=== PATIENT | male | born 1945 | race Caucasian/White ===

== ENCOUNTER → 2020-09-21 | Outpatient (CLI) | payer MEDICARE, BC ==
[~2020-09-21] MED LIST: ALEVE220 M1 PO; ATORVASTATIN CA10 MG PO; CLOPIDOGREL75 MG PO; METOPROLOL SUCC25 MG PO; NEXIUM40 MG PO; NORCO 7.5-3251 EACH PO
[2020-09-21 09:49] LABS: BASOPHILS % 0.5 % (0.0-1.0); EOSINOPHILS # (AUTO) 0.4 (0.0-0.4); EOSINOPHILS % 6.1 % (0.0-6.0); HEMATOCRIT 43.5 % (38.2-49.6); HEMOGLOBIN 15.1 g/dL (14.0-18.0); LYMPHOCYTES # (AUTO) 1.6 (1.0-3.2); LYMPHOCYTES % 27.1 % (18.0-39.1); MEAN CORPUSCULAR HEMOGLOBIN 30.3 pg (28-32); MEAN CORPUSCULAR HGB CONC 34.7 g/dL (31-35); MEAN CORPUSCULAR VOLUME 87.3 fL (81-99); MONOCYTES # (AUTO) 0.6 (0.2-0.8); MONOCYTES % 10.2 % (4.4-11.3); NEUTROPHILS # (AUTO) 3.2 (2.1-6.9); NEUTROPHILS % 55.8 % (38.7-80.0); PLATELET COUNT 220 x10e3/uL (140-360); RED BLOOD COUNT 4.98 x10e6/uL (4.3-5.7); RED CELL DISTRIBUTION WIDTH 12.5 % (11.7-14.4)
[2020-09-21 10:11] LABS: ALANINE AMINOTRANSFERASE 21 IU/L (0-55); ALBUMIN 3.7 g/dL (3.5-5.0); ALBUMIN/GLOBULIN RATIO 1.1 (0.8-2.0); ALKALINE PHOSPHATASE 58 IU/L (40-150); ANION GAP 15.1 mmol/L (8-16); BLOOD UREA NITROGEN 15 mg/dL (7-26); BUN/CREATININE RATIO 14 (6-25); CALCIUM 8.7 mg/dL (8.4-10.2); CARBON DIOXIDE 23 mmol/L (22-29); CHLORIDE 103 mmol/L (98-107); CHOL/HDL RATIO 3.3 (3.9-4.7); CHOLESTEROL 131 MD/DL (0-199); EST GLOMERULAR FILTRATION RATE > 60 ML/MIN (60-); GLUCOSE 98 mg/dL (74-118); HDL CHOLESTEROL 40 MG/DL (40-60); LDL CHOLESTEROL 58 MG/DL (60-130); POTASSIUM 4.1 mmol/L (3.5-5.1); SODIUM 137 mmol/L (136-145); TRIGLYCERIDES 164 MG/DL (0-149)
== END ==
LOC: RAD 09:12
PROVIDERS: ATTEND Family Medicine
DX: Z01.818 Encounter for other preprocedural examination (principal); E78.5 Hyperlipidemia, unspecified; I10 Essential (primary) hypertension
CPT/HCPCS: 36415; 71046; 80053; 80061; 85025

== ENCOUNTER 2020-11-12 08:00 | Observation (INO) | payer MEDICARE, BC ==
[2020-11-08 09:20] LABS: BASOPHILS % 0.6 % (0.0-1.0); EOSINOPHILS # (AUTO) 0.3 (0.0-0.4); EOSINOPHILS % 5.5 % (0.0-6.0); HEMATOCRIT 42.6 % (38.2-49.6); HEMOGLOBIN 14.1 g/dL (14.0-18.0); LYMPHOCYTES # (AUTO) 1.5 (1.0-3.2); LYMPHOCYTES % 29.8 % (18.0-39.1); MEAN CORPUSCULAR HEMOGLOBIN 29.4 pg (28-32); MEAN CORPUSCULAR HGB CONC 33.1 g/dL (31-35); MEAN CORPUSCULAR VOLUME 88.8 fL (81-99); MONOCYTES # (AUTO) 0.5 (0.2-0.8); MONOCYTES % 10.7 % (4.4-11.3); NEUTROPHILS # (AUTO) 2.6 (2.1-6.9); PLATELET COUNT 204 x10e3/uL (140-360); RED CELL DISTRIBUTION WIDTH 12.7 % (11.7-14.4)
[~2020-11-12] VITALS: Ht 170.2 cm; Wt 102.1 kg
[2020-11-12] VITALS (8 sets, daily range): BP systolic 125–155; BP diastolic 60–90
[~2020-11-12 08:00] MED LIST changes: +CEFAZOLIN SOD 1 GM/NS 50ML 100 ML IV ONE; +CELECOXIB 200 MG CAP ONE; +DEXAMETHASONE SOD PHOS 10 MG/1 ML VIAL ONE; +GABAPENTIN 300 MG CAP ONE; +ROPIVACAINE 246.25 MG, EPINEPHRINE HCL 1:1000 1ML 0.5 MG, CLONIDINE HCL 0.08 MG, KETORO... INJ ONE; +SODIUM CHLORIDE 0.9% 500ML 500 ML ONE; +TRANEXAMIC ACID 1,000 MG/10 ML ML ONE; +VANCOMYCIN HCL 1,000 MG ONE
[2020-11-12] MEDS ORDERED: DOCUSATE SODIUM 100 MG CAP PO PRN (08:30)
[2020-11-12] MEDS ORDERED: DIPHENHYDRAMINE HCL INJ 50 MG/ML VIAL IV PRN (08:30)
[2020-11-12] MEDS ORDERED: HYDROCODONE/APAP 5MG-325MG TAB PO PRN (08:30)
[2020-11-12] MEDS ORDERED: ONDANSETRON HCL INJ 2MG/ML 2ML 2 MG/ML VIAL IV PRN (08:30)
[2020-11-12] MEDS ORDERED: KETOROLAC TROMETHAMINE 30 MG/ML VIAL IV PRN (08:30)
[2020-11-12] MEDS ORDERED: ACETAMINOPHEN 650 MG SUPP PR PRN (08:30)
[2020-11-12] MEDS ORDERED: ZOLPIDEM TARTRATE 5 MG TAB PO PRN (08:30)
[2020-11-12] MEDS ORDERED: MEPERIDINE HCL INJ 25 MG/ML VIAL ONE (08:51)
[2020-11-12] MEDS ORDERED: FENTANYL CITRATE/PF 100MCG/2 ML INJ ONE ×2 (09:02→13:01)
[2020-11-12] MEDS: SODIUM CHLORIDE 0.9% 1000ML 1,000 ML IV SCH ×2 (10:30→19:31)
[2020-11-12] MEDS: ASPIRIN 325 MG TAB PO SCH ×2 (11:09→16:27)
[2020-11-12] MEDS: CELECOXIB 200 MG CAP PO SCH ×2 (11:09→16:27)
[2020-11-12] MEDS ORDERED: DEXAMETHASONE SOD PHOS INJ 4 MG/ML VIAL ONE (12:32)
[2020-11-12] MEDS ORDERED: GLYCOPYRROLATE INJ 0.2 MG/ML VIAL ONE (12:32)
[2020-11-12] MEDS ORDERED: LIDOCAINE HCL 2% LOCAL INJ 5 ML SDV VIAL INJ ONE (12:32)
[2020-11-12] MEDS ORDERED: ONDANSETRON HCL INJ 2MG/ML 2ML 2 MG/ML VIAL ONE (12:32)
[2020-11-12] MEDS ORDERED: SEVOFLURANE INHAL SOLN 250 ML PEN BTL ONE (12:32)
[2020-11-12] MEDS ORDERED: PROPOFOL IV EMULSION 10 MG/ML 20 ML VIAL ONE (12:32)
[2020-11-12] MEDS ORDERED: BUPIVACAINE HCL 0.5% INJ 30 ML VIAL INJ ONE (12:55)
[2020-11-12] MEDS ORDERED: MIDAZOLAM HCL 2 MG/2 ML VIAL ONE (13:01)
[2020-11-12] MEDS ORDERED: MORPHINE SULFATE INJ 10 MG/ML ONE (13:01)
[2020-11-12] MEDS: CEFAZOLIN SOD 1 GM/NS 50ML 50 ML IV SCH ×2 (16:27→23:00)
[2020-11-12] MEDS: HYDROCODONE/APAP 7.5MG-325MG 1 EA TAB PO PRN (19:32)
[2020-11-13] VITALS: BP 132/72
[2020-11-13 04:00] VITALS: BP 119/76
[2020-11-13 04:51] LABS: HEMATOCRIT 37.5 % (38.2-49.6); HEMOGLOBIN 12.7 g/dL (14.0-18.0)
[2020-11-13] MEDS: SODIUM CHLORIDE 0.9% 1000ML 1,000 ML IV SCH (06:30)
[2020-11-13] MEDS: CEFAZOLIN SOD 1 GM/NS 50ML 50 ML IV SCH (06:54)
[2020-11-13] MEDS: ASPIRIN 325 MG TAB PO SCH (07:35)
[2020-11-13] MEDS: CELECOXIB 200 MG CAP PO SCH (07:35)
[2020-11-13 07:44] VITALS: BP 127/75
[2020-11-13 07:50] VITALS: BP 127/75
[2020-11-13] MEDS ORDERED: ACETAMINOPHEN 1000 MG/100 ML IV PRN (08:30)
[2020-11-13] MEDS ORDERED: PANTOPRAZOLE SOD 40 MG TABEC PO SCH (09:00)
[2020-11-13] MEDS ORDERED: CLOPIDOGREL BISULFATE 75 MG TAB PO SCH (09:00)
[2020-11-13] MEDS ORDERED: ATORVASTATIN 10 MG TAB PO SCH (09:00)
[2020-11-13] MEDS: HYDROCODONE/APAP 7.5MG-325MG 1 EA TAB PO PRN (09:01)
[2020-11-13 11:49] VITALS: BP 166/80
[2020-11-13] MEDS ORDERED: METOPROLOL SUCCINATE 25 MG TAB XL PO SCH (21:00)
== END 2020-11-13 12:01 | disposition home or self-care (01) ==
LOC: OR 08:00 → PACU V 08:29 → MED/SURG 09:26
PROVIDERS: ADMIT Specialist; ATTEND Specialist
DX: M17.11 Unilateral primary osteoarthritis, right knee (principal); K21.9 Gastro-esophageal reflux disease without esophagitis; E78.5 Hyperlipidemia, unspecified; I10 Essential (primary) hypertension; Z01.812 Encounter for preprocedural laboratory examination; Z20.822 Contact with and (suspected) exposure to COVID-19; I25.2 Old myocardial infarction; Z96.652 Presence of left artificial knee joint
CPT/HCPCS: 27447; 36415 ×2; 73560; 85014; 85018; 85025; 86850; 86900; 86920; 93005; 97110; 97116 ×2; 97161; 97530 ×2; C1713 ×3; C1776 ×2; G0378 ×2; J0171; J0690 ×2; J1100 ×2; J1885; J2001; J2175; J2250; J2270; J2405; J2704; J2795; J3010; J3370; J7030; J7040; S0164; U0002

== ENCOUNTER 2021-03-04 07:00 | Outpatient (RCR) | payer MEDICARE, BC ==
[~2021-03-04 07:00] MED LIST changes: -CEFAZOLIN SOD 1 GM/NS 50ML 100 ML IV ONE; -CELECOXIB 200 MG CAP ONE; -DEXAMETHASONE SOD PHOS 10 MG/1 ML VIAL ONE; -GABAPENTIN 300 MG CAP ONE; -ROPIVACAINE 246.25 MG, EPINEPHRINE HCL 1:1000 1ML 0.5 MG, CLONIDINE HCL 0.08 MG, KETORO... INJ ONE; -SODIUM CHLORIDE 0.9% 500ML 500 ML ONE; -TRANEXAMIC ACID 1,000 MG/10 ML ML ONE; -VANCOMYCIN HCL 1,000 MG ONE
== END 2021-03-16 ==
LOC: PT 07:00
PROVIDERS: ATTEND Physician Assistant
DX: Z47.1 Aftercare following joint replacement surgery (principal); Z96.651 Presence of right artificial knee joint

== ENCOUNTER 2021-09-12 13:30 | Outpatient (RCR) | payer MEDICARE, BC | END 2021-09-16 | LOC: PT 13:30 | PROVIDERS: ATTEND Specialist | DX: M77.8 Other enthesopathies, not elsewhere classified (principal); M25.511 Pain in right shoulder; M25.512 Pain in left shoulder; M62.81 Muscle weakness (generalized); R29.3 Abnormal posture ==

== ENCOUNTER 2021-10-03 07:59 | Outpatient (RCR) | payer MEDICARE, BC | END 2021-10-14 | LOC: PT 07:59 | PROVIDERS: ATTEND Specialist | DX: M77.8 Other enthesopathies, not elsewhere classified (principal); M75.82 Other shoulder lesions, left shoulder; M75.81 Other shoulder lesions, right shoulder ==

== ENCOUNTER → 2022-09-05 | Outpatient (CLI) | payer MEDICARE, BC | LOC: MRI 07:38 | PROVIDERS: ATTEND Physician Assistant | DX: M75.31 Calcific tendinitis of right shoulder (principal); M25.511 Pain in right shoulder ==

== ENCOUNTER → 2022-10-27 | Day surgery (SDC) | payer MEDICARE, BC ==
[2022-10-24 10:47] LABS: BASOPHILS % 0.5 % (0.0-1.0); EOSINOPHILS # (AUTO) 0.3 (0.0-0.4); EOSINOPHILS % 5.8 % (0.0-6.0); HEMATOCRIT 40.5 % (38.2-49.6); HEMOGLOBIN 13.6 g/dL (14.0-18.0); LYMPHOCYTES # (AUTO) 1.7 (1.0-3.2); MEAN CORPUSCULAR HEMOGLOBIN 29.9 pg (28-32); MEAN CORPUSCULAR HGB CONC 33.6 g/dL (31-35); MONOCYTES # (AUTO) 0.7 (0.2-0.8); NEUTROPHILS # (AUTO) 2.9 (2.1-6.9); NEUTROPHILS % 51.3 % (38.7-80.0); PLATELET COUNT 234 x10e3/uL (140-360); RED BLOOD COUNT 4.55 x10e6/uL (4.3-5.7); RED CELL DISTRIBUTION WIDTH 12.5 % (11.7-14.4)
[~2022-10-27] MED LIST changes: +ACETAMINOPHEN 1000 MG/100 ML 100 ML IV ONE; +AMLODIPINE BESYL5 MG PO; +ASPIRIN EC81 MG PO; +DEXAMETHASONE SOD PHOS INJ 4 MG/ML SDV ONE; +EPHEDRINE SULFATE INJ 50 MG/ML VIAL ONE; +EPINEPHRINE 1 MG/ML 30ML VIAL ONE; +FENTANYL CITRATE/PF 100MCG/2 ML INJ ONE; +LIDOCAINE HCL 2% LOCAL INJ 5 ML SDV VIAL INJ ONE; +METOCLOPRAMIDE HCL 10 MG/2ML VIAL ONE; +MIDAZOLAM HCL 2 MG/2 ML VIAL ONE; +ONDANSETRON HCL INJ 2MG/ML 2ML 2 MG/ML VIAL ONE; +POVIDONE IODINE 0.05% 0.05 % ML PO ONE; +PROPOFOL IV EMULSION 10 MG/ML 20 ML VIAL ONE; +ROCURONIUM BROMIDE 10 MG/ML 5ML VIAL IV ONE; +ROPIVACAINE 0.5% 5 MG/ML 30 ML SDV ONE; +SEVOFLURANE INHAL SOLN 250 ML PEN BTL ONE; +SUGAMMADEX SODIUM 200 MG/2 ML VIAL IV ONE
[2022-10-27 14:35] VITALS: BP 127/73
== END | disposition home or self-care (01) ==
LOC: OR 06:55
PROVIDERS: ATTEND Specialist
DX: M75.122 Complete rotator cuff tear or rupture of left shoulder, not specified as traumatic (principal); S43.432A Superior glenoid labrum lesion of left shoulder, initial encounter; M75.22 Bicipital tendinitis, left shoulder; M75.111 Incomplete rotator cuff tear or rupture of right shoulder, not specified as traumatic; I25.2 Old myocardial infarction; K21.9 Gastro-esophageal reflux disease without esophagitis; X58.XXXA Exposure to other specified factors, initial encounter; Z01.812 Encounter for preprocedural laboratory examination; Z01.818 Encounter for other preprocedural examination; Z79.02 Long term (current) use of antithrombotics/antiplatelets; Z79.82 Long term (current) use of aspirin; Z79.899 Other long term (current) drug therapy; Z87.891 Personal history of nicotine dependence
CPT/HCPCS: 29827; 36415; 71046; 85025; C1713; J0131; J0690; J1100; J2001; J2250; J2405; J2704; J2765; J2795; J3010

== ENCOUNTER 2023-01-13 07:52 | Outpatient (RCR) | payer MEDICARE, BC ==
[~2023-01-13 07:52] MED LIST changes: -ACETAMINOPHEN 1000 MG/100 ML 100 ML IV ONE; -DEXAMETHASONE SOD PHOS INJ 4 MG/ML SDV ONE; -EPHEDRINE SULFATE INJ 50 MG/ML VIAL ONE; -EPINEPHRINE 1 MG/ML 30ML VIAL ONE; -FENTANYL CITRATE/PF 100MCG/2 ML INJ ONE; -LIDOCAINE HCL 2% LOCAL INJ 5 ML SDV VIAL INJ ONE; -METOCLOPRAMIDE HCL 10 MG/2ML VIAL ONE; -MIDAZOLAM HCL 2 MG/2 ML VIAL ONE; -ONDANSETRON HCL INJ 2MG/ML 2ML 2 MG/ML VIAL ONE; -POVIDONE IODINE 0.05% 0.05 % ML PO ONE; -PROPOFOL IV EMULSION 10 MG/ML 20 ML VIAL ONE; -ROCURONIUM BROMIDE 10 MG/ML 5ML VIAL IV ONE; -ROPIVACAINE 0.5% 5 MG/ML 30 ML SDV ONE; -SEVOFLURANE INHAL SOLN 250 ML PEN BTL ONE; -SUGAMMADEX SODIUM 200 MG/2 ML VIAL IV ONE
== END 2023-01-14 ==
LOC: PT 07:52
PROVIDERS: ATTEND Physician Assistant
DX: S46.092A Other injury of muscle(s) and tendon(s) of the rotator cuff of left shoulder, initial encounter (principal)

== ENCOUNTER 2023-02-02 08:00 | Outpatient (RCR) | payer MEDICARE, BC | END 2023-02-13 | LOC: PT 08:00 | PROVIDERS: ATTEND Physician Assistant | DX: M75.102 Unspecified rotator cuff tear or rupture of left shoulder, not specified as traumatic (principal) ==